=== PATIENT | female | born 1995 ===

== ENCOUNTER 2023-12-08 14:31 | Inpatient (IN) | payer OTHER ==
[~2023-12-08] VITALS: Ht 152.4 cm; Wt 80.7 kg
[~2023-12-08 14:31] MED LIST: CITRANATAL B-C1 EAC1; FOLIC ACID1 MG
[2023-12-08] MEDS ORDERED: CEFAZOLIN SODIUM 1,000 MG VIAL IV STA ×2 (14:36)
[2023-12-08] MEDS ORDERED: CEFAZOLIN SODIUM 1,000 MG VIAL ONE (14:37)
[2023-12-08] MEDS ORDERED: OXYTOCIN 20 UNITS/500ML RL PIGGYBAG IV ONE (14:42)
[2023-12-08] MEDS ORDERED: RINGERS SOLUTION,LACTATED 1,000 ML IV SCH ×2 (14:45)
[2023-12-08] MEDS ORDERED: OXYTOCIN 500 ML IV SCH (15:00)
[2023-12-08] MEDS ORDERED: OXYTOCIN 20 UNITS/1000ML RL PIGGYBAG IV ONE (15:20)
[2023-12-08] MEDS ORDERED: ERYTHROMYCIN BASE 1 GM TUBE OP ONE (15:20)
[2023-12-08] MEDS ORDERED: CHLORHEXIDINE GLUCONATE 120 ML BOTTLE TOP ONE (15:21)
[2023-12-08] MEDS ORDERED: LIDOCAINE HCL 1% 10ML VIAL ONE (15:21)
[2023-12-08 15:25] LABS: PH,URINE 7.5 (5.0-8.0); URINE APPEARANCE Clear; URINE BILIRRUBIN Negative (NEGATIVE); URINE BLOOD Trace; URINE COLOR Yellow; URINE GLUCOSE Negative (NEGATIVE); URINE LEUKOCYTE Trace; URINE NITRATE Negative; URINE PROTEIN Negative (NEGATIVE); URINE UROBILINOGEN 0.2 E.U./dl
[2023-12-08 15:28] LABS: URINE BACTERIA 1108.5 uL (0.0-1933); URINE EPITHELIAL CELLS 16.8 uL (0.0-38.8); URINE WBC 15.9 uL (0.0-23.2)
[2023-12-08 15:33] LABS: HEMATOCRIT 31.2 % (36.0-45.00); HEMOGLOBIN 10.4 g/dL (12.0-15.00); MEAN CELL VOLUME 84.9 fL (80.00-100.00); MEAN CORPUSCULAR HEMOGLOBIN 28.3 pg (27.00-32.0); MEAN CORPUSCULAR HGB CONC 33.3 g/dl (32.0-36.0); PLATELET COUNT 296 K/uL (150-450); RED BLOOD COUNT 3.67 M/uL (4.00-6.00); RED CELL DISTRIBUTION WIDTH 15.5 % (11.5-14.5)
[2023-12-08 15:45] LABS: INR 0.95; PARTIAL THROMBOPLASTIN TIME 28.4 SECONDS (22.0-34.0)
[2023-12-08 15:50] LABS: ALBUMIN 2.8 gm/dL (3.4-5.0); BILIRUBIN TOTAL 0.36 mg/dL (0.3-1.2); CALCIUM 9.6 mg/dL (8.5-10.1); CREATININE SERUM 0.54 mg/dL (0.55-1.02); GFR 133.47; GLOBULINA 4.5 G/DL (2.4-3.5); POTASSIUM 4.48 mEq/L (3.5-5.1); TOTAL PROTEIN 7.3 gm/dL (6.4-8.2)
[2023-12-08] MEDS ORDERED: AMPICILLIN SODIUM 1,000 MG in 0.9 % SODIUM CHLORIDE 50 ML IV SCH (17:00)
[2023-12-08] MEDS ORDERED: CEFAZOLIN SODIUM 1,000 MG VIAL IV SCH (18:30)
[2023-12-08] MEDS ORDERED: PROMETHAZINE HCL 25 MG/ML AMPUL IV SCH (19:45)
[2023-12-08] MEDS ORDERED: KETOROLAC TROMETHAMINE 60 MG VIAL IM ONE (19:45)
[2023-12-08] MEDS ORDERED: MEPERIDINE HCL/PF 50 MG/ML VIAL IV SCH (19:45)
[2023-12-08 20:08] LABS: ABG PH 7.247 (7.35-7.45); ABG pCO2 47.4 mmHg (35-45); BASE EXCESS -7.2 mmol/l; BICARBONATE 20.2 mmol/l (23-25); SaO2 18.3 %; Tco2 21.6 mmol/l
[2023-12-08 20:14] LABS: ABG PO2 17.8 mmHg (80-100); o2 21 %
[2023-12-09 02:26] LABS: HEMATOCRIT 28.9 % (36.0-45.00); HEMOGLOBIN 9.6 g/dL (12.0-15.00); MEAN CELL VOLUME 83.4 fL (80.00-100.00); MEAN CORPUSCULAR HEMOGLOBIN 27.6 pg (27.00-32.0); MEAN CORPUSCULAR HGB CONC 33.2 g/dl (32.0-36.0); PLATELET COUNT 274 K/uL (150-450); RED BLOOD COUNT 3.46 M/uL (4.00-6.00); RED CELL DISTRIBUTION WIDTH 16.2 % (11.5-14.5)
[2023-12-09] MEDS ORDERED: OxyCODONE HCL/APAP UD (PERCOCET) PO SCH ×2 (07:00→13:00)
[2023-12-09] MEDS ORDERED: DOCUSATE CALCIUM 240 MG CAPSULE PO SCH (09:00)
[2023-12-09] MEDS ORDERED: SIMETHICONE 125 MG CAPSULE PO SCH (09:00)
[2023-12-10] MEDS ORDERED: COLACE100 MG PO (17:23)
[2023-12-10] MEDS ORDERED: IBU800 MG PO (17:23)
[2023-12-10] MEDS ORDERED: SIMETHICONE125 M1 PO (17:24)
[2023-12-10] MEDS ORDERED: FUSION PLUS CA1 EACH PO (17:25)
== END 2023-12-10 17:40 | disposition home or self-care (01) | DRG 785 ==
LOC: OBS/DEL 14:31 → OB/GYN 14:43 → LDR 14:43 → OBS/DEL 14:43 → OB/GYN 19:55
PROVIDERS: ADMIT Specialist; ATTEND Specialist
PROC: 0UB70ZZ Excision of Bilateral Fallopian Tubes, Open Approach (ICD-10-PCS; 2023-12-08)
PROC: 4A1HXCZ Monitoring of Products of Conception, Cardiac Rate, External Approach (ICD-10-PCS; 2023-12-08)
PROC: 10D00Z1 Extraction of Products of Conception, Low, Open Approach (ICD-10-PCS; principal; 2023-12-08 17:00)
DX: O45.8X3 Other premature separation of placenta, third trimester (principal); O99.824 Streptococcus B carrier state complicating childbirth; Z3A.37 37 weeks gestation of pregnancy; Z30.2 Encounter for sterilization; Z37.0 Single live birth; Z20.822 Contact with and (suspected) exposure to COVID-19